=== PATIENT | female | born 1975 | race Caucasian/White ===

== ENCOUNTER 2019-12-27 14:24 | Inpatient (IN) ==
[2019-12-27 15:41] LABS: Basophils # 0.1 K/mcL (0.0-0.2); Basophils % 0.6 %; Eosinophils # 0.1 K/mcL (0.0-0.6); Eosinophils % 0.5 %; Hematocrit 35.5 % (35.3-44.9); Hemoglobin 11.3 g/dL (11.5-15.4); Immature Granulocytes % 1.8 % (0-4); Lymphocytes # 3.5 K/mcL (0.6-4.6); Mean Corpuscular HGB Conc 31.8 g/dL (31.6-35.5); Mean Corpuscular Hemoglobin 27.9 pg (28.0-33.3); Mean Corpuscular Volume 87.7 fL (83.0-100.0); Mean Platelet Volume 10.2 fL (9.4-12.4); Monocytes # 0.7 K/mcL (0.0-1.3); Monocytes % 6.3 %; Neutrophils # 6.7 K/mcL (1.6-8.9); Platelet Count 321 K/mcL (140-400); Red Blood Count 4.05 M/mcL (3.82-4.97); Segmented Neutrophils % 59.8 %; White Blood Count 11.3 K/mcL (4.3-11.1)
[2019-12-27 15:50] LABS: Alanine Aminotransferase 27 Units/L (7-52); Albumin 3.8 g/dL (3.5-5.7); Albumin/Globulin Ratio 1.2 (1.1-2.2); Alkaline Phosphatase 136 Units/L (34-104); Aspartate Amino Transferase 16 Units/L (13-39); BUN/Creatinine Ratio 12 (6-26); Bilirubin,Total 0.3 mg/dL (0.3-1.0); Blood Urea Nitrogen 7 mg/dL (6-20); Calcium 9.4 mg/dL (8.6-10.3); Carbon Dioxide 27 mEq/L (23-29); Chloride 102 mEq/L (98-107); Globulin 3.2 g/dL (2.4-3.5); Glucose 80 mg/dL (70-105); Osmolality,Calculated 281 (280-300); Potassium 3.4 mEq/L (3.5-5.1); Sodium 137 mEq/L (136-145); Troponin I < 0.03 ng/mL (< 0.04); eGFR For African Americans > 60 (> 60); eGFR For Non-African Americans > 60 (> 60)
[2019-12-27] MEDS ORDERED: Ondansetron 4 MG/2 ML VIAL IVP PRN (17:15)
[2019-12-27] MEDS ORDERED: Naloxone 0.4 MG/ML INJ IVP PRN (17:15)
[2019-12-27] MEDS ORDERED: *HR* Dextrose 50 % in Water (Syg) 50 ML SYRINGE IVP PRN (18:01)
[2019-12-27] MEDS ORDERED: D5% in Water 1,000 ML IVC PRN (18:01)
[2019-12-27] MEDS ORDERED: Dextrose Gel 15 GM/37.5 ML TUBE PO PRN ×2 (18:01)
[2019-12-27] MEDS ORDERED: Vancomycin 500 MG in 0.9 % Sodium Chloride Mini Bag 100 ML IVPB ONE (18:25)
[2019-12-27 18:40] LABS: Hematocrit 34.3 % (35.3-44.9)
[2019-12-27] MEDS ORDERED: 0.9 % Sodium Chloride 1,000 ML IVC ONE (18:57)
[2019-12-27] MEDS: Gabapentin 300 MG CAPSULE PO SCH (21:12)
[2019-12-27] MEDS: Famotidine 20 MG TABLET PO SCH (21:13)
[2019-12-27] MEDS: Divalproex (24 HR) 250 MG TABLET PO SCH (21:13)
[2019-12-27] MEDS: clonazePAM 0.5 MG TABLET PO SCH (21:50)
[2019-12-27] MEDS: risperiDONE 0.25 MG TABLET PO SCH (22:10)
[2019-12-28] MEDS: Insulin LISPRO 300 UNITS/3 ML VIAL SQ SCH ×3 (08:17→16:50)
[2019-12-28] MEDS ORDERED: lisinopriL 10 MG TABLET PO SCH (09:00)
[2019-12-28] MEDS: Gabapentin 300 MG CAPSULE PO SCH ×2 (09:36→21:36)
[2019-12-28] MEDS: Famotidine 20 MG TABLET PO SCH ×2 (09:36→21:36)
[2019-12-28] MEDS: clonazePAM 0.5 MG TABLET PO SCH ×3 (09:37→21:35)
[2019-12-28] MEDS: lisinopriL 10 MG TABLET PO SCH (09:37)
[2019-12-28 09:56] LABS: Basophils # 0.1 K/mcL (0.0-0.2); Basophils % 0.4 %; Eosinophils % 0.2 %; Hematocrit 31.8 % (35.3-44.9); Hemoglobin 10.2 g/dL (11.5-15.4); Lymphocytes # 2.8 K/mcL (0.6-4.6); Lymphocytes % 22.3 %; Mean Corpuscular HGB Conc 32.1 g/dL (31.6-35.5); Mean Corpuscular Volume 87.4 fL (83.0-100.0); Mean Platelet Volume 10.2 fL (9.4-12.4); Monocytes # 0.7 K/mcL (0.0-1.3); Monocytes % 5.4 %; Neutrophils # 8.6 K/mcL (1.6-8.9); Platelet Count 295 K/mcL (140-400); Red Blood Count 3.64 M/mcL (3.82-4.97); Red Cell Distribution Width 15.2 % (11.5-14.5); Segmented Neutrophils % 69.7 %; White Blood Count 12.3 K/mcL (4.3-11.1)
[2019-12-28 10:10] LABS: Alanine Aminotransferase 18 Units/L (7-52); Albumin 3.3 g/dL (3.5-5.7); Albumin/Globulin Ratio 1.1 (1.1-2.2); Alkaline Phosphatase 131 Units/L (34-104); Aspartate Amino Transferase 9 Units/L (13-39); BUN/Creatinine Ratio 11 (6-26); Bilirubin,Total 0.4 mg/dL (0.3-1.0); Blood Urea Nitrogen 6 mg/dL (6-20); Calcium 8.9 mg/dL (8.6-10.3); Carbon Dioxide 26 mEq/L (23-29); Chloride 105 mEq/L (98-107); Globulin 2.9 g/dL (2.4-3.5); Glucose 132 mg/dL (70-105); Osmolality,Calculated 287 (280-300); Potassium 3.6 mEq/L (3.5-5.1); Sodium 139 mEq/L (136-145); Total Protein 6.2 g/dL (6.4-8.9); eGFR For African Americans > 60 (> 60); eGFR For Non-African Americans > 60 (> 60)
[2019-12-28 10:57] LABS: Bilirubin,Urine Negative (Negative); Blood,Urine Negative (Negative); Clarity,Urine Cloudy (Clear); Color,Urine Yellow (Yellow); Glucose,Urine (UA) Normal (Normal); Ketones,Urine 15 mg/dL (Negative); Leukocyte Esterase,Urine Negative (Negative); Nitrite,Urine Negative (Negative); PH,Urine 6.5 pH Units (5.0-8.0); Protein,Urine Negative (Neg-Trace); Specific Gravity,Urine 1.017 (1.010-1.025); Urobilinogen,Urine Normal (Normal)
[2019-12-28 10:58] LABS: Hepatitis B Surface Antigen Nonreactive (Nonreactive)
[2019-12-28 10:59] LABS: Bacteria,Urine None Seen per hpf (None-Few); Hyaline Casts,Urine None Seen per lpf (None-Few); Squamous Epithelial Cell,Urine Many per lpf (None-Few); WBC,Urine 0-3 per hpf (0-3)
[2019-12-28] MEDS: Ibuprofen 600 MG TABLET PO PRN ×2 (11:06→21:36)
[2019-12-28 11:26] LABS: Hepatitis B Core IgM Nonreactive (Nonreactive)
[2019-12-28 11:27] LABS: Hepatitis C Virus Antibody Nonreactive (Nonreactive)
[2019-12-28 11:28] LABS: HIV-1&2 Antibody & p24 Ag Nonreactive (Nonreactive); Hepatitis A Antibody IgM Nonreactive (Nonreactive)
[2019-12-28] MEDS: tiZANidine 4 MG TABLET PO PRN ×2 (12:46→23:36)
[2019-12-28] MEDS ORDERED: Ringers Solution, Lactated 1,000 ML IVC ONE (12:51)
[2019-12-28] MEDS: Divalproex (24 HR) 250 MG TABLET PO SCH (21:35)
[2019-12-28] MEDS: risperiDONE 0.25 MG TABLET PO SCH (21:36)
[2019-12-28] MEDS ORDERED: Acetaminophen 325 MG TABLET PO ONE (23:26)
[2019-12-29 05:51] LABS: Basophils # 0.1 K/mcL (0.0-0.2); Basophils % 0.6 %; Eosinophils # 0.1 K/mcL (0.0-0.6); Eosinophils % 0.4 %; Hemoglobin 10.2 g/dL (11.5-15.4); Immature Granulocytes % 2.8 % (0-4); Lymphocytes # 3.8 K/mcL (0.6-4.6); Lymphocytes % 24.9 %; Mean Corpuscular HGB Conc 31.9 g/dL (31.6-35.5); Mean Corpuscular Hemoglobin 28.3 pg (28.0-33.3); Mean Corpuscular Volume 88.6 fL (83.0-100.0); Mean Platelet Volume 9.7 fL (9.4-12.4); Monocytes % 6.3 %; Neutrophils # 9.8 K/mcL (1.6-8.9); Platelet Count 316 K/mcL (140-400); Red Blood Count 3.61 M/mcL (3.82-4.97); Red Cell Distribution Width 15.5 % (11.5-14.5); White Blood Count 15.1 K/mcL (4.3-11.1)
[2019-12-29 06:07] LABS: BUN/Creatinine Ratio 13 (6-26); Blood Urea Nitrogen 7 mg/dL (6-20); Calcium 8.9 mg/dL (8.6-10.3); Carbon Dioxide 27 mEq/L (23-29); Chloride 104 mEq/L (98-107); Glucose 124 mg/dL (70-105); Osmolality,Calculated 289 (280-300); Potassium 3.6 mEq/L (3.5-5.1); Sodium 140 mEq/L (136-145); eGFR For African Americans > 60 (> 60); eGFR For Non-African Americans > 60 (> 60)
[2019-12-29] MEDS: clonazePAM 0.5 MG TABLET PO SCH ×3 (09:27→21:25)
[2019-12-29] MEDS: Famotidine 20 MG TABLET PO SCH ×2 (09:28→21:26)
[2019-12-29] MEDS: Gabapentin 300 MG CAPSULE PO SCH ×2 (09:28→21:25)
[2019-12-29] MEDS: Ibuprofen 600 MG TABLET PO PRN ×2 (09:30→16:22)
[2019-12-29] MEDS: Insulin LISPRO 300 UNITS/3 ML VIAL SQ SCH ×3 (09:31→17:40)
[2019-12-29] MEDS: lisinopriL 10 MG TABLET PO SCH (09:31)
[2019-12-29] MEDS: Divalproex (24 HR) 250 MG TABLET PO SCH (21:25)
[2019-12-29] MEDS: risperiDONE 0.25 MG TABLET PO SCH (21:25)
[2019-12-29] MEDS ORDERED: *HR* OxyCODONE/APAP 5/325 TABLET PO ONE (23:54)
[2019-12-30] MEDS: Ibuprofen 600 MG TABLET PO PRN ×3 (02:15→20:55)
[2019-12-30 06:00] LABS: Basophils # 0.1 K/mcL (0.0-0.2); Basophils % 0.5 %; Eosinophils # 0.1 K/mcL (0.0-0.6); Eosinophils % 0.4 %; Hematocrit 32.8 % (35.3-44.9); Hemoglobin 10.3 g/dL (11.5-15.4); Immature Granulocytes % 2.9 % (0-4); Lymphocytes # 2.9 K/mcL (0.6-4.6); Lymphocytes % 16.8 %; Mean Corpuscular HGB Conc 31.4 g/dL (31.6-35.5); Mean Corpuscular Hemoglobin 27.8 pg (28.0-33.3); Mean Corpuscular Volume 88.4 fL (83.0-100.0); Mean Platelet Volume 9.5 fL (9.4-12.4); Monocytes # 0.8 K/mcL (0.0-1.3); Monocytes % 4.9 %; Neutrophils # 12.6 K/mcL (1.6-8.9); Platelet Count 405 K/mcL (140-400); Red Blood Count 3.71 M/mcL (3.82-4.97); Red Cell Distribution Width 15.5 % (11.5-14.5); Segmented Neutrophils % 74.5 %
[2019-12-30 06:15] LABS: BUN/Creatinine Ratio 12 (6-26); Blood Urea Nitrogen 7 mg/dL (6-20); Calcium 9.2 mg/dL (8.6-10.3); Carbon Dioxide 27 mEq/L (23-29); Chloride 101 mEq/L (98-107); Glucose 169 mg/dL (70-105); Osmolality,Calculated 286 (280-300); Potassium 4.1 mEq/L (3.5-5.1); Sodium 137 mEq/L (136-145); eGFR For African Americans > 60 (> 60); eGFR For Non-African Americans > 60 (> 60)
[2019-12-30] MEDS: Insulin LISPRO 300 UNITS/3 ML VIAL SQ SCH ×3 (07:43→18:00)
[2019-12-30] MEDS: clonazePAM 0.5 MG TABLET PO SCH ×3 (08:39→20:47)
[2019-12-30] MEDS: Gabapentin 300 MG CAPSULE PO SCH ×2 (08:39→20:46)
[2019-12-30] MEDS: Famotidine 20 MG TABLET PO SCH ×2 (08:40→20:54)
[2019-12-30] MEDS: lisinopriL 10 MG TABLET PO SCH (08:40)
[2019-12-30] MEDS: *HR* OxyCODONE/APAP 5/325 TABLET PO PRN (18:01)
[2019-12-30] MEDS: risperiDONE 0.25 MG TABLET PO SCH (20:46)
[2019-12-30] MEDS: Divalproex (24 HR) 250 MG TABLET PO SCH (20:47)
[2019-12-31 06:31] LABS: Basophils # 0.1 K/mcL (0.0-0.2); Basophils % 0.7 %; Eosinophils # 0.1 K/mcL (0.0-0.6); Eosinophils % 0.8 %; Hematocrit 33.2 % (35.3-44.9); Hemoglobin 10.3 g/dL (11.5-15.4); Immature Granulocytes % 4.3 % (0-4); Lymphocytes # 2.7 K/mcL (0.6-4.6); Lymphocytes % 18.3 %; Mean Corpuscular Hemoglobin 27.8 pg (28.0-33.3); Mean Corpuscular Volume 89.7 fL (83.0-100.0); Mean Platelet Volume 9.4 fL (9.4-12.4); Monocytes % 6.5 %; Neutrophils # 10.1 K/mcL (1.6-8.9); Nucleated Red Blood Cells 0.2 /100 WBC (0); Platelet Count 428 K/mcL (140-400); Red Cell Distribution Width 15.5 % (11.5-14.5); Segmented Neutrophils % 69.4 %; White Blood Count 14.6 K/mcL (4.3-11.1)
[2019-12-31 06:46] LABS: BUN/Creatinine Ratio 13 (6-26); Blood Urea Nitrogen 8 mg/dL (6-20); Calcium 9.2 mg/dL (8.6-10.3); Carbon Dioxide 28 mEq/L (23-29); Chloride 99 mEq/L (98-107); Glucose 155 mg/dL (70-105); Osmolality,Calculated 281 (280-300); Potassium 4.1 mEq/L (3.5-5.1); Sodium 135 mEq/L (136-145); eGFR For African Americans > 60 (> 60); eGFR For Non-African Americans > 60 (> 60)
[2019-12-31] MEDS: Gabapentin 300 MG CAPSULE PO SCH ×2 (08:45→20:50)
[2019-12-31] MEDS: clonazePAM 0.5 MG TABLET PO SCH ×3 (08:45→20:49)
[2019-12-31] MEDS: Famotidine 20 MG TABLET PO SCH ×2 (08:45→20:49)
[2019-12-31] MEDS: lisinopriL 10 MG TABLET PO SCH (08:45)
[2019-12-31] MEDS: Insulin LISPRO 300 UNITS/3 ML VIAL SQ SCH ×3 (08:46→18:10)
[2019-12-31] MEDS: Ibuprofen 600 MG TABLET PO PRN (11:25)
[2019-12-31] MEDS: *HR* OxyCODONE/APAP 5/325 TABLET PO PRN ×2 (13:16→22:08)
[2019-12-31] MEDS: risperiDONE 0.25 MG TABLET PO SCH (20:48)
[2019-12-31] MEDS: Divalproex (24 HR) 250 MG TABLET PO SCH (20:49)
[2020-01-01 07:09] LABS: Basophils # 0.1 K/mcL (0.0-0.2); Basophils % 0.7 %; Eosinophils # 0.1 K/mcL (0.0-0.6); Eosinophils % 0.9 %; Hemoglobin 10.7 g/dL (11.5-15.4); Immature Granulocytes % 4.9 % (0-4); Lymphocytes # 2.9 K/mcL (0.6-4.6); Lymphocytes % 19.5 %; Mean Corpuscular HGB Conc 31.5 g/dL (31.6-35.5); Mean Platelet Volume 9.3 fL (9.4-12.4); Monocytes # 1.2 K/mcL (0.0-1.3); Monocytes % 7.7 %; Neutrophils # 9.9 K/mcL (1.6-8.9); Platelet Count 498 K/mcL (140-400); Red Blood Count 3.82 M/mcL (3.82-4.97); Red Cell Distribution Width 15.5 % (11.5-14.5); Segmented Neutrophils % 66.3 %
[2020-01-01 07:15] LABS: BUN/Creatinine Ratio 13 (6-26); Blood Urea Nitrogen 8 mg/dL (6-20); Calcium 9.4 mg/dL (8.6-10.3); Carbon Dioxide 25 mEq/L (23-29); Chloride 98 mEq/L (98-107); Glucose 228 mg/dL (70-105); Osmolality,Calculated 282 (280-300); Potassium 4.5 mEq/L (3.5-5.1); Sodium 133 mEq/L (136-145); eGFR For African Americans > 60 (> 60); eGFR For Non-African Americans > 60 (> 60)
[2020-01-01] MEDS: Famotidine 20 MG TABLET PO SCH ×2 (07:55→20:38)
[2020-01-01] MEDS: Gabapentin 300 MG CAPSULE PO SCH ×2 (07:55→20:37)
[2020-01-01] MEDS: clonazePAM 0.5 MG TABLET PO SCH ×3 (07:55→20:39)
[2020-01-01] MEDS: Insulin LISPRO 300 UNITS/3 ML VIAL SQ SCH ×3 (07:57→17:00)
[2020-01-01] MEDS: lisinopriL 10 MG TABLET PO SCH (08:00)
[2020-01-01] MEDS ORDERED: Vancomycin 500 MG in 0.9 % Sodium Chloride Mini Bag 100 ML IVPB ONE (09:00)
[2020-01-01 09:13] LABS: C-Reactive Protein 217 mg/L (Less than 10)
[2020-01-01] MEDS ORDERED: Lidocaine -MPF 1% 5 ML AMPUL INFILT ONE (11:15)
[2020-01-01] MEDS: Acetylcysteine 10% 2 ML INHSOL IH SCH ×2 (12:11→15:32)
[2020-01-01] MEDS: *HR* OxyCODONE/APAP 5/325 TABLET PO PRN (14:42)
[2020-01-01] MEDS ORDERED: Ipratropium/Albuterol Neb 3 ML IH SCH (16:00)
[2020-01-01] MEDS: Ibuprofen 600 MG TABLET PO PRN (19:38)
[2020-01-01] MEDS: Divalproex (24 HR) 250 MG TABLET PO SCH (20:38)
[2020-01-01] MEDS: risperiDONE 0.25 MG TABLET PO SCH (20:39)
[2020-01-01] MEDS ORDERED: Insulin DETEMIR 100 UNIT/ML X5UNITS SQ SCH (21:00)
[2020-01-02] MEDS: Famotidine 20 MG TABLET PO SCH (07:51)
[2020-01-02] MEDS: clonazePAM 0.5 MG TABLET PO SCH ×2 (07:51→16:32)
[2020-01-02] MEDS: lisinopriL 10 MG TABLET PO SCH (07:51)
[2020-01-02] MEDS: Gabapentin 300 MG CAPSULE PO SCH (07:51)
[2020-01-02] MEDS: Insulin LISPRO 300 UNITS/3 ML VIAL SQ SCH ×3 (07:54→16:33)
[2020-01-02 08:31] LABS: Basophils # 0.1 K/mcL (0.0-0.2); Basophils % 0.6 %; Eosinophils # 0.1 K/mcL (0.0-0.6); Eosinophils % 0.8 %; Hematocrit 33.4 % (35.3-44.9); Hemoglobin 10.7 g/dL (11.5-15.4); Lymphocytes # 2.6 K/mcL (0.6-4.6); Lymphocytes % 18.8 %; Mean Corpuscular Hemoglobin 28.2 pg (28.0-33.3); Mean Corpuscular Volume 87.9 fL (83.0-100.0); Monocytes # 1.4 K/mcL (0.0-1.3); Monocytes % 10.2 %; Neutrophils # 9.4 K/mcL (1.6-8.9); Platelet Count 454 K/mcL (140-400); Red Cell Distribution Width 15.3 % (11.5-14.5); Segmented Neutrophils % 66.6 %; White Blood Count 14.1 K/mcL (4.3-11.1)
[2020-01-02 09:40] LABS: BUN/Creatinine Ratio 14 (6-26); Blood Urea Nitrogen 7 mg/dL (6-20); Carbon Dioxide 26 mEq/L (23-29); Chloride 98 mEq/L (98-107); Glucose 261 mg/dL (70-105); Osmolality,Calculated 279 (280-300); Potassium 4.3 mEq/L (3.5-5.1); Sodium 131 mEq/L (136-145); eGFR For African Americans > 60 (> 60); eGFR For Non-African Americans > 60 (> 60)
[2020-01-02] MEDS ORDERED: Cefdinir 300 MG CAPSULE PO SCH (12:15)
[2020-01-02] MEDS: Ibuprofen 600 MG TABLET PO PRN (13:05)
[2020-01-02 17:25] VITALS: BP 113/78
[2020-01-02] MEDS ORDERED: Insulin DETEMIR 100 UNIT/ML X5UNITS SQ SCH (21:00)
[2020-01-02] MEDS ORDERED: Aminoglycoside Consult 1 EACH MC ONE (21:29)
== END 2020-01-02 21:30 | disposition home health service (06) | DRG 871 ==
LOC: EMEROOARM 14:24 → 3ANU 14:24 → SUATTDRO 16:44 → 3ANU 17:49 → SUATTDRO 12-29 18:26 → 3ANU 01-01 19:45
PROVIDERS: ADMIT Internal Medicine; ATTEND Internal Medicine